=== PATIENT | male | born 1990 | race Two or more races ===

== ENCOUNTER 2017-04-01 13:40 | Emergency (ER) | payer OTHER ==
[2017-04-01 13:46] VITALS: BP 147/80
--- NOTE | 2017-04-01 14:07 | ER Document Report ---
ED General - General Chief Complaint: Foot Pain Stated Complaint: FOOT PAIN Time Seen by Provider: 04/01/17 14:03 Information source: Patient TRAVEL OUTSIDE OF THE [place] IN LAST 30 DAYS: No - HPI Onset: Other - 6-year-old male presented to the emergency room today with plantar warts on the right foot. - Related Data Allergies/Adverse Reactions: No Known Allergies Allergy (Unverified 04/01/17 14:01) Past Medical History - General Information source: Patient - Social History Smoking Status: Never Smoker Family History: None Renal/ Medical History: Denies: Hx Peritoneal Dialysis Review of Systems - Review of Systems Constitutional: No symptoms reported EENT: No symptoms reported Cardiovascular: No symptoms reported Respiratory: No symptoms reported Gastrointestinal: No symptoms reported Genitourinary: No symptoms reported Male Genitourinary: No symptoms reported Musculoskeletal: No symptoms reported Skin: No symptoms reported Hematologic/Lymphatic: No symptoms reported Neurological/Psychological: No symptoms reported Physical Exam - Vital signs Vitals: Temp Pulse Resp BP Pulse Ox 98.1 F 87 16 147/80 H 100 04/01/17 13:44 04/01/17 13:44 04/01/17 13:44 04/01/17 13:44 04/01/17 13:44 Interpretation: Normal - General General appearance: Appears well, Alert - HEENT Head: Normocephalic, Atraumatic Eyes: Normal Pupils: PERRL - Respiratory Respiratory status: No respiratory distress Chest status: Nontender Breath sounds: Normal Chest palpation: Normal - Cardiovascular Rhythm: Regular Heart sounds: Normal auscultation Murmur: No - Abdominal Inspection: Normal Distension: No distension Bowel sounds: Normal Tenderness: Nontender Organomegaly: No organomegaly - Back Back: Normal, Nontender - Extremities General upper extremity: Normal inspection, Nontender, Normal color, Normal ROM , Normal temperature General lower extremity: Normal inspection, Nontender, Normal color, Normal ROM , Normal temperature, Normal weight bearing. No: Jyotsna's sign - Neurological Neuro grossly intact: Yes Cognition: Normal Orientation: AAOx4 [place] Coma Scale Eye Opening: Spontaneous [place] Coma Scale Verbal: Oriented [place] Coma Scale Motor: Obeys Commands [place] Coma Scale Total: 15 Speech: Normal Motor strength normal: LUE, RUE, LLE, RLE Sensory: Normal - Psychological Associated symptoms: Normal affect, Normal mood - Skin Skin Temperature: Warm Skin Moisture: Dry Skin Color: Normal Course - Re-evaluation Re-evalutation: 04/01/17 14:04 26-year-old male who has plantar warts on his right foot for approximately 3 years. He states that he tried to get them taken care of while he was in the [employer] and they Kind of pushing him off. He states that he was working last evening finishes tore it 7:00 this morning and felt there was a lot of pain and was unable to ambulate on it. No new injury to the affected area. Rapid capillary refill distal to the affected area. - Vital Signs Vital signs: Temp Pulse Resp BP Pulse Ox 98.1 F 87 16 147/80 H 100 04/01/17 13:44 04/01/17 13:44 04/01/17 13:44 04/01/17 13:44 04/01/17 13:44 Discharge - Discharge Condition: Good Disposition: HOME, SELF-CARE Additional Instructions: Suresh mendes. Must follow-up with a benzol operator as soon as possible. With PMD in 3-5 days. Prescriptions: Naproxen Sodium [Naproxen Sodium ER] 500 mg PO Q12 PRN #20 tablet.sa PRN Reason: Tramadol HCl [Ultram] 50 mg PO Q4 PRN #20 tablet PRN Reason: Referrals: POLLY UMANZOR DPM [ACTIVE STAFF] - Follow up as needed
== END 2017-04-01 14:14 | disposition home or self-care (01) ==
LOC: ER 13:40
DX: B07.0 Plantar wart (principal); M79.671 Pain in right foot
CPT/HCPCS: 99283

== ENCOUNTER 2017-07-09 17:10 | Emergency (ER) | payer OTHER ==
--- NOTE | 2017-07-09 17:47 | ER Document Report ---
ED Medical Screen (RME) - General Chief Complaint: R chest pain/ R shoulderpain Stated Complaint: CHEST PAIN Time Seen by Provider: 07/09/17 17:45 Notes: Patient presents with right-sided chest pain and right arm numbness. He states that the right arm numbness is the main problem. But he states is also had some foggy vision. He states he has had this for several days and the symptoms continue to increase. He states he has no significant past medical history or surgeries. He denies being under any stress. He has a local community relations police lieutenant. No vomiting or diarrhea. No cough cold or congestion. He denies tobacco or alcohol use. TRAVEL OUTSIDE OF THE [place] IN LAST 30 DAYS: No - Related Data Allergies/Adverse Reactions: No Known Allergies Allergy (Unverified 04/01/17 14:01) Past Medical History - Social History Chew tobacco use (# tins/day): No Frequency of alcohol use: Occasional Drug Abuse: None Renal/ Medical History: Denies: Hx Peritoneal Dialysis Surgical Hx: Negative - Immunizations Hx Diphtheria, Pertussis, Tetanus Vaccination: Yes Physical Exam - Vital signs Vitals: Temp Pulse Resp BP Pulse Ox 98.5 F 66 16 131/82 H 98 07/09/17 17:30 07/09/17 17:30 07/09/17 17:30 07/09/17 17:30 07/09/17 17:30 Course - Vital Signs Vital signs: Temp Pulse Resp BP Pulse Ox 98.5 F 66 16 131/82 H 98 07/09/17 17:30 07/09/17 17:30 07/09/17 17:30 07/09/17 17:30 07/09/17 17:30
--- NOTE | 2017-07-09 18:10 | RADIOLOGY REPORT (SQ) ---
EXAM DESCRIPTION: CHEST PA/LAT COMPLETED DATE/TIME: 07/09/2017 5:59 pm REASON FOR STUDY: cp COMPARISON: None. EXAM PARAMETERS: NUMBER OF VIEWS: two views TECHNIQUE: Digital Frontal and Lateral radiographic views of the chest acquired. RADIATION DOSE: NA LIMITATIONS: none FINDINGS: LUNGS AND PLEURA: No opacities, masses or pneumothorax. No pleural effusion. MEDIASTINUM AND HILAR STRUCTURES: No masses or contour abnormalities. HEART AND VASCULAR STRUCTURES: Heart normal size. No evidence for failure. BONES: No acute findings. HARDWARE: None in the chest. OTHER: No other significant finding. IMPRESSION: NO SIGNIFICANT RADIOGRAPHIC FINDING IN THE CHEST. TECHNICAL DOCUMENTATION: JOB ID: [id number] [employer]- All Rights Reserved
[2017-07-09 18:16] LABS: ABSOLUTE BASOPHILS # (AUTO) 0.1 10^3/uL (0.0-0.2); ABSOLUTE EOSINOPHILS # (AUTO) 0.1 10^3/uL (0.0-0.6); ABSOLUTE LYMPHOCYTES (AUTO) 1.5 10^3/uL (0.5-4.7); ABSOLUTE MONOCYTES (AUTO) 0.6 10^3/uL (0.1-1.4); ABSOLUTE NEUT (AUTO) 4.2 10^3/uL (1.7-8.2); BASOPHILS % (AUTO) 0.8 % (0-2); EOSINOPHILS % (AUTO) 1.2 % (0-6); HEMATOCRIT 44.6 % (37.9-51.0); HEMOGLOBIN 15.7 g/dL (13.5-17.0); HGB HCT DIFFERENCE 2.5; LYMPHOCYTES % (AUTO) 23.4 % (13-45); MEAN CORPUSCULAR HEMOGLOBIN 29.3 pg (27.0-33.4); MEAN CORPUSCULAR HGB CONC 35.2 g/dL (32.0-36.0); MEAN CORPUSCULAR VOLUME 83 fl (80-97); MONOCYTES % (AUTO) 9.8 % (3-13); RED BLOOD COUNT 5.35 10^6/uL (4.35-5.55); RED CELL DISTRIBUTION WIDTH 13.1 % (11.5-14.0); SEGMENTED NEUTROPHILS % (AUTO) 64.8 % (42-78); WHITE BLOOD COUNT 6.5 10^3/uL (4.0-10.5)
[2017-07-09 18:31] LABS: ALANINE AMINOTRANSFERASE 39 U/L (21-72); ALBUMIN 4.8 g/dL (3.5-5.0); ALKALINE PHOSPHATASE 67 U/L (38-126); ANION GAP 14 (5-19); ASPARTATE AMINO TRANSFERASE 30 U/L (17-59); BILIRUBIN,DIRECT 0.3 mg/dL (0.0-0.4); BILIRUBIN,TOTAL 0.8 mg/dL (0.2-1.3); BLOOD UREA NITROGEN 14 mg/dL (7-20); CALCIUM 9.9 mg/dL (8.4-10.2); CARBON DIOXIDE 23 mmol/L (22-30); CHLORIDE 102 mmol/L (98-107); CREATININE RESULT 0.87 mg/dL (0.52-1.25); GLUCOSE 87 mg/dL (75-110); POTASSIUM 3.8 mmol/L (3.6-5.0); SODIUM 139.4 mmol/L (137-145); TOTAL PROTEIN 7.4 g/dL (6.3-8.2)
--- NOTE | 2017-07-09 19:15 | EKG REPORT ---
SEVERITY:- NORMAL ECG - SINUS RHYTHM : Confirmed by: Judd Farfan MD 09-Jul-2017 19:14:33
[2017-07-09] MEDS ORDERED: KETOROLAC TROMETHAMINE 10 MG TABLET PO ONE (20:05)
--- NOTE | 2017-07-09 20:07 | ER Document Report ---
ED General - General Chief Complaint: Chest Pain Stated Complaint: CHEST PAIN Time Seen by Provider: 07/09/17 17:45 TRAVEL OUTSIDE OF THE [place] IN LAST 30 DAYS: No - HPI Patient complains to provider of: Right-sided chest pain numbness Notes: Patient coming in for evaluation of right-sided chest pain and numbness. Patient states ongoing for greater than 24 hours. Patient denies any fever chills nausea vomiting. Denies any trauma. Patient states recently has been putting a fence around his house. Patient otherwise denies any other past medical history denies any cardiac issues also denies any recent travel. Upon my evaluation patient is on cell phone no obvious distress. States numbness and pain increased with movement. - Related Data Allergies/Adverse Reactions: No Known Allergies Allergy (Verified 07/09/17 17:48) Past Medical History - Social History Smoking Status: Never Smoker Chew tobacco use (# tins/day): No Frequency of alcohol use: Occasional Drug Abuse: None Family History: None Renal/ Medical History: Denies: Hx Peritoneal Dialysis Surgical Hx: Negative - Immunizations Hx Diphtheria, Pertussis, Tetanus Vaccination: Yes Review of Systems - Review of Systems Constitutional: No symptoms reported EENT: No symptoms reported Cardiovascular: Chest pain Respiratory: No symptoms reported Gastrointestinal: No symptoms reported Genitourinary: No symptoms reported Male Genitourinary: No symptoms reported Musculoskeletal: No symptoms reported Skin: No symptoms reported Hematologic/Lymphatic: No symptoms reported Neurological/Psychological: No symptoms reported -: Yes All other systems reviewed and negative Physical Exam - Vital signs Vitals: Temp Pulse Resp BP Pulse Ox 98.5 F 66 16 131/82 H 98 07/09/17 17:30 07/09/17 17:30 07/09/17 17:30 07/09/17 17:30 07/09/17 17:30 Interpretation: Normal - General General appearance: Appears well, Alert - HEENT Head: Normocephalic, Atraumatic Eyes: Normal Pupils: PERRL - Respiratory Respiratory status: No respiratory distress Chest status: Nontender Breath sounds: Normal Chest palpation: Normal - Cardiovascular Rhythm: Regular Heart sounds: Normal auscultation Murmur: No - Abdominal Inspection: Normal Distension: No distension Bowel sounds: Normal Tenderness: Nontender Organomegaly: No organomegaly - Back Back: Normal, Nontender - Extremities General upper extremity: Normal inspection, Nontender, Normal color, Normal ROM , Normal temperature General lower extremity: Normal inspection, Nontender, Normal color, Normal ROM , Normal temperature, Normal weight bearing. No: Jyotsna's sign - Neurological Neuro grossly intact: Yes Cognition: Normal Orientation: AAOx4 [place] Coma Scale Eye Opening: Spontaneous [place] Coma Scale Verbal: Oriented [place] Coma Scale Motor: Obeys Commands [place] Coma Scale Total: 15 Speech: Normal Motor strength normal: LUE, RUE, LLE, RLE Sensory: Normal - Psychological Associated symptoms: Normal affect, Normal mood - Skin Skin Temperature: Warm Skin Moisture: Dry Skin Color: Normal Course - Re-evaluation Re-evalutation: 07/09/17 23:05 The patient has atypical chest pain as the patient's chest pain is not suggestive of pulmonary embolus, cardiac ischemia, aortic dissection, or other serious etiology. Given the extremely low risk of these diagnoses further testing and evaluation for these possibilities does not appear to be indicated at this time. The patient has been instructed to return if the symptoms worsen or change in any way. - Vital Signs Vital signs: Temp Pulse Resp BP Pulse Ox 98.5 F 66 16 131/82 H 98 07/09/17 17:30 07/09/17 17:30 07/09/17 18:09 07/09/17 17:30 07/09/17 18:09 - Laboratory Result Diagrams: 07/09/17 17:52 07/09/17 17:52 Discharge - Discharge Clinical Impression: Right-sided chest wall pain, Numbness Condition: Good Disposition: HOME, SELF-CARE Instructions: Chest Pain of Unclear Cause ([facility]), Chest Wall Pain ([facility]), Numbness or Paresthesia ([facility]), Family Physicians / Practices Additional Instructions: Follow-up with your primary care physician. Return to ER symptoms worsen. Take medication as prescribed. However recommend follow-up if her symptoms continue for greater than 2 weeks. Return to the ER for any concerns. He may also take Tylenol for pain. Prescriptions: Ketorolac Tromethamine [Toradol 10 mg Tablet] 10 mg PO Q8HP PRN #21 tablet PRN Reason:
[2017-07-09 20:56] VITALS: BP 117/78
== END 2017-07-09 20:42 | disposition home or self-care (01) ==
LOC: ER 17:10
DX: R07.89 Other chest pain (principal); R20.0 Anesthesia of skin
CPT/HCPCS: 93005; 99285; 36415; 85025; 80053; 84484; 71020; 93010; J3490